=== PATIENT | female | born 1955 | race Caucasian/White ===

== ENCOUNTER 2017-02-18 10:23 | Emergency (ER) | payer MEDICAID ==
[~2017-02-18] VITALS: Ht 154.9 cm; Wt 66.0 kg
[~2017-02-18 10:23] MED LIST: GLIP10TA3 PO; HYDR-4005 GT; HYDR-519 PO; LEVO500T2 *; LEVO500T2 PO; METF1000 PO; SITA50TA3 PO
[2017-02-18] MEDS ORDERED: LISI-604 PO (10:32)
[2017-02-18] MEDS ORDERED: AMLO10TA80 PO (10:32)
[2017-02-18] MEDS ORDERED: PIOG15TA6 PO (10:32)
[2017-02-18] MEDS ORDERED: EMPA10TA PO (10:32)
[2017-02-18] MEDS ORDERED: ATOR20TA65 PO (10:32)
[2017-02-18] MEDS ORDERED: valsartan PO (10:32)
[2017-02-18] MEDS ORDERED: ASPI-1159 PO (10:32)
[2017-02-18] MEDS ORDERED: METOCLOPRAMIDE HCL 10MG/2ML VIAL IV ONE (11:30)
[2017-02-18] MEDS ORDERED: MORPHINE SULFATE 2 MG/ML CPJ (NOT FOR IM USE) IV ONE (11:30)
[2017-02-18] MEDS ORDERED: DIPHENHYDRAMINE 50MG/ML VIAL IV ONE (11:30)
[2017-02-18 11:35] LABS: BASOPHILS % 0.5 % (0.0-2.0); EOSINOPHILS % 1.7 % (0.0-5.0); HEMATOCRIT. 41.4 % (36.0-48.0); HEMOGLOBIN. 13.5 g/dL (12.0-16.0); MEAN CORPUSCULAR VOLUME 83.1 fL (81.0-99.0); MEAN PLATELET VOLUME 8.1 fl (7.4-10.4); MONOCYTES % 6.7 % (2.0-8.0); NEUTROPHILS % 72.1 % (40.0-76.0); PLATELET 195 x1000/uL (130-400); RED BLOOD CELL COUNT 4.99 mill/uL (4.2-5.4); RED CELL DISTRIBUTION WIDTH 14.2 % (11.6-14.6)
[2017-02-18 11:43] LABS: CHLORIDE 105 mEq/L (98-107)
[2017-02-18 11:51] LABS: CARBON DIOXIDE 26 mEq/L (21-32)
[2017-02-18 15:21] VITALS: BP 120/75
== END 2017-02-18 15:24 | disposition home or self-care (01) ==
LOC: ER 11:00
DX: G43.809 Other migraine, not intractable, without status migrainosus (principal); M54.2 Cervicalgia; R42 Dizziness and giddiness; H53.149 Visual discomfort, unspecified; I10 Essential (primary) hypertension; E11.65 Type 2 diabetes mellitus with hyperglycemia; Z79.82 Long term (current) use of aspirin; Z90.49 Acquired absence of other specified parts of digestive tract
CPT/HCPCS: 36415; 70450; 80053; 85025; 96374; 96375; 99285; J1200; J2270; J2765

== ENCOUNTER 2017-02-19 14:35 | Emergency (ER) | payer MEDICAID ==
[~2017-02-19] VITALS: Ht 154.9 cm; Wt 66.0 kg
[~2017-02-19 14:35] MED LIST changes: +AMLO10TA80 PO; +ASPI-1159 PO; +ATOR20TA65 PO; +EMPA10TA PO; +LISI-604 PO; +PIOG15TA6 PO; +valsartan PO
[2017-02-19] MEDS ORDERED: DIPHENHYDRAMINE 50MG/ML VIAL IV ONE (15:15)
[2017-02-19] MEDS ORDERED: MORPHINE SULFATE 2 MG/ML CPJ (NOT FOR IM USE) IV ONE (15:15)
[2017-02-19] MEDS ORDERED: METOCLOPRAMIDE HCL 10MG/2ML VIAL IV ONE (15:15)
[2017-02-19 15:43] LABS: BASOPHILS % 1.1 % (0.0-2.0); EOSINOPHILS % 2.5 % (0.0-5.0); HEMOGLOBIN. 14.5 g/dL (12.0-16.0); LYMPHOCYTES % 40.7 % (20.0-50.0); MEAN CORPUSCULAR HEMOGLOBIN 27.5 pg (28.0-32.0); MEAN CORPUSCULAR VOLUME 81.7 fL (81.0-99.0); MEAN PLATELET VOLUME 8.7 fl (7.4-10.4); NEUTROPHILS % 48.7 % (40.0-76.0); PLATELET 210 x1000/uL (130-400); RED BLOOD CELL COUNT 5.26 mill/uL (4.2-5.4)
[2017-02-19 15:44] LABS: CHLORIDE 103 mEq/L (98-107)
[2017-02-19 15:49] LABS: CARBON DIOXIDE 21 mEq/L (21-32)
[2017-02-19 16:39] LABS: CLARITY URINE CLEAR (CLEAR); COLOR URINE YELLOW (YELLOW); GLUCOSE URINE 3+ (NEGATIVE); KETONES URINE 1+ (NEGATIVE); LEUKOCYTE ESTERASE URINE NEGATIVE (NEGATIVE); NITRITE URINE NEGATIVE (NEGATIVE); OCCULT BLOOD URINE NEGATIVE (NEGATIVE); PH URINE 7.5 (4.5-8.0); PROTEIN URINE NEGATIVE (NEGATIVE); UROBILINOGEN URINE 0.2 E.U./dL (0.2-1.0)
[2017-02-19] MEDS ORDERED: LORAZEPAM 1MG TABLET PO ONE (20:15)
[2017-02-19] MEDS ORDERED: SUMATRIPTAN SUCCINATE 6MG/0.5ML VIAL SUBCUT ONE (20:15)
[2017-02-19] MEDS ORDERED: KETOROLAC 30MG/ML VIAL IV ONE (20:15)
[2017-02-19 22:10] VITALS: BP 139/86
== END 2017-02-19 22:21 | disposition home or self-care (01) ==
LOC: ER 16:26
DX: G43.909 Migraine, unspecified, not intractable, without status migrainosus (principal); I10 Essential (primary) hypertension; E11.9 Type 2 diabetes mellitus without complications; Z79.84 Long term (current) use of oral hypoglycemic drugs
CPT/HCPCS: 36415; 70551; 80053; 81001; 82962; 85025; 85651; 96372; 96374; 96375; 99284; J1200; J1885; J2270; J2765; J3030; Z7610

== ENCOUNTER 2017-11-18 11:46 | Emergency (ER) | payer MEDICAID ==
[~2017-11-18] VITALS: Ht 160 cm; Wt 55.0 kg
[2017-11-18 11:49] VITALS: BP 148/99
== END 2017-11-18 12:59 | disposition home or self-care (01) ==
LOC: ER 12:56
DX: S80.862A Insect bite (nonvenomous), left lower leg, initial encounter (principal); S80.861A Insect bite (nonvenomous), right lower leg, initial encounter; S40.862A Insect bite (nonvenomous) of left upper arm, initial encounter; S40.861A Insect bite (nonvenomous) of right upper arm, initial encounter; I10 Essential (primary) hypertension; E11.9 Type 2 diabetes mellitus without complications; F41.9 Anxiety disorder, unspecified; W57.XXXA Bitten or stung by nonvenomous insect and other nonvenomous arthropods, initial encounter; Y93.9 Activity, unspecified; Y92.9 Unspecified place or not applicable; Z79.82 Long term (current) use of aspirin; Z96.659 Presence of unspecified artificial knee joint
CPT/HCPCS: 99282

== ENCOUNTER 2018-03-20 13:30 | Emergency (ER) | payer MEDICAID ==
[~2018-03-20] VITALS: Ht 154.9 cm; Wt 61.0 kg
[2018-03-20 13:59] VITALS: BP 141/94
[2018-03-20] MEDS ORDERED: BACITRACIN ZINC OINT UDPKT TOP ONE ×2 (14:45→17:30)
[2018-03-20] MEDS ORDERED: LIDOCAINE HCL/PF 1% 10 MG/ML 5ML VIAL IJ ONE (14:45)
[2018-03-20] MEDS ORDERED: KETOROLAC 60MG/2ML VIAL IM ONE (15:15)
== END 2018-03-20 17:49 | disposition home or self-care (01) ==
LOC: ER 13:30
DX: L03.011 Cellulitis of right finger (principal); F41.9 Anxiety disorder, unspecified; E11.9 Type 2 diabetes mellitus without complications; I10 Essential (primary) hypertension; Z79.899 Other long term (current) drug therapy; Z79.82 Long term (current) use of aspirin; Z96.659 Presence of unspecified artificial knee joint
CPT/HCPCS: 10060; 96372; 99283; J1885; J3490

== ENCOUNTER 2019-09-29 13:32 | Inpatient (IN) | payer OTHER, MEDICAID ==
[~2019-09-29] VITALS: Ht 154.9 cm; Wt 62.8 kg
[~2019-09-29 13:32] MED LIST changes: -ASPI-1159 PO; +ASPI-1497 PO
[2019-09-29] MEDS ORDERED: SODIUM CHLORIDE 0.9% 1,000 ML IV ONE (14:15)
[2019-09-29] MEDS ORDERED: ACETAMINOPHEN 325MG TABLET PO STA (14:15)
[2019-09-29 14:52] LABS: BASOPHILS % 0.2 % (0.0-2.0); EOSINOPHILS % 0.1 % (0.0-5.0); HEMATOCRIT. 38.4 % (36.0-48.0); HEMOGLOBIN. 13.5 g/dL (12.0-16.0); LYMPHOCYTES % 9.6 % (20.0-50.0); MEAN CORPUSCULAR HEMOGLOBIN 28.5 pg (28.0-32.0); MEAN CORPUSCULAR VOLUME 81.2 fL (81.0-99.0); MEAN PLATELET VOLUME 8.8 fl (7.4-10.4); MONOCYTES % 6.9 % (2.0-8.0); NEUTROPHILS % 83.2 % (40.0-76.0); PLATELET 190 x1000/uL (130-400); RED BLOOD CELL COUNT 4.73 mill/uL (4.2-5.4); RED CELL DISTRIBUTION WIDTH 13.2 % (11.6-14.6)
[2019-09-29 14:59] LABS: CHLORIDE 100 mEq/L (98-107)
[2019-09-29] MEDS ORDERED: POTASSIUM CHLORIDE 20MEQ TABLET SR PO ONE (15:30)
[2019-09-29] MEDS ORDERED: POTASSIUM CHLORIDE INJ 40 MEQ in DEXT 5% WATER 250 ML IV ONE (15:30)
[2019-09-29 17:03] LABS: CLARITY URINE CLEAR (CLEAR); COLOR URINE YELLOW (YELLOW); KETONES URINE 3+ (NEGATIVE); LEUKOCYTE ESTERASE URINE NEGATIVE (NEGATIVE); NITRITE URINE NEGATIVE (NEGATIVE); OCCULT BLOOD URINE NEGATIVE (NEGATIVE); PROTEIN URINE NEGATIVE (NEGATIVE); SPECIFIC GRAVITY URINE 1.018 (1.005-1.030); UROBILINOGEN URINE 0.2 E.U./dL (0.2-1.0)
[2019-09-29] MEDS ORDERED: ACETAMINOPHEN 325MG TABLET PO PRN (17:15)
[2019-09-29] MEDS ORDERED: CEFTRIAXONE 1 G PREMIX 50 ML IV SCH (18:00)
[2019-09-29] MEDS: ENOXAPARIN 40MG/0.4ML SYR SUBCUT SCH (18:27)
[2019-09-29] MEDS: AZITHROMYCIN 500 MG in DEXT 5% WATER 250 ML IV SCH (23:00)
[2019-09-30] MEDS: HYDROCODONE/ACETAMINOPHEN 5/325MG TABLET PO PRN ×2 (06:37→13:55)
[2019-09-30] MEDS ORDERED: DEXTROSE 50% WATER 50ML SYRINGE IV PRN (11:30)
[2019-09-30 14:27] VITALS: BP 140/85
[2019-09-30 16:00] VITALS: BP 116/71
[2019-09-30] MEDS: PIPERACILLIN/TAZOBACTAM 3.375 G in DEXT 5% WATER 100 ML IV SCH ×2 (16:08→23:26)
[2019-09-30 16:40] LABS: HEMATOCRIT. 35.7 % (36.0-48.0); HEMOGLOBIN. 12.1 g/dL (12.0-16.0); MEAN CORPUSCULAR HEMOGLOBIN 27.8 pg (28.0-32.0); MEAN CORPUSCULAR VOLUME 82.3 fL (81.0-99.0); PLATELET 170 x1000/uL (130-400); RED BLOOD CELL COUNT 4.33 mill/uL (4.2-5.4); RED CELL DISTRIBUTION WIDTH 13.3 % (11.6-14.6)
[2019-09-30 16:46] LABS: CHLORIDE 102 mEq/L (98-107)
[2019-09-30 16:58] LABS: LDL CHOLESTEROL 47 mg/dL (5-100)
[2019-09-30 16:59] LABS: HDL CHOLESTEROL 34 mg/dL (40-59)
[2019-09-30] MEDS: ENOXAPARIN 40MG/0.4ML SYR SUBCUT SCH (17:19)
[2019-09-30 17:39] LABS: PLATELET ESTIMATE NORMAL
[2019-09-30] MEDS: BLOOD SUGAR DIAGNOSTIC STRIP TEST SCH ×2 (17:51→21:09)
[2019-09-30] MEDS: INSULIN LISPRO 100 UNITS/ML SUBCUT SCH ×2 (17:53→21:10)
[2019-09-30 20:00] VITALS: BP 133/80
[2019-09-30] MEDS: AZITHROMYCIN 500 MG in DEXT 5% WATER 250 ML IV SCH (21:08)
[2019-09-30] MEDS: ACETAMINOPHEN 325MG TABLET PO PRN (21:17)
[2019-10-01] VITALS (7 sets, daily range): BP systolic 120–169; BP diastolic 73–88
[2019-10-01] MEDS: ZOLPIDEM TARTRATE 5MG TABLET PO PRN ×2 (00:24→21:43)
[2019-10-01] MEDS: BLOOD SUGAR DIAGNOSTIC STRIP TEST SCH ×4 (06:52→21:05)
[2019-10-01] MEDS: CEFTRIAXONE 1 G PREMIX 50 ML IV SCH (08:34)
[2019-10-01] MEDS: INSULIN LISPRO 100 UNITS/ML SUBCUT SCH ×4 (08:35→21:18)
[2019-10-01] MEDS: HYDROCODONE/ACETAMINOPHEN 5/325MG TABLET PO PRN ×3 (08:45→21:43)
[2019-10-01] MEDS: ACETAMINOPHEN 325MG TABLET PO PRN (16:56)
[2019-10-01] MEDS: ENOXAPARIN 40MG/0.4ML SYR SUBCUT SCH (18:18)
[2019-10-01] MEDS: GUAIFENESIN-DM 200MG-20MG/10ML UDC PO PRN (20:43)
[2019-10-01] MEDS: INSULIN GLARGINE UD 100 UNITS/ML SYR SUBCUT SCH (21:19)
[2019-10-01] MEDS: AZITHROMYCIN 500 MG in DEXT 5% WATER 250 ML IV SCH (21:57)
[2019-10-01] MEDS: DIPHENHYDRAMINE 50MG/ML VIAL IV PRN (23:48)
[2019-10-02] VITALS: BP 167/83
[2019-10-02] MEDS: HYDROCODONE/ACETAMINOPHEN 5/325MG TABLET PO PRN ×4 (03:36→21:43)
[2019-10-02 04:00] VITALS: BP 135/84
[2019-10-02] MEDS: BLOOD SUGAR DIAGNOSTIC STRIP TEST SCH ×4 (06:45→21:00)
[2019-10-02 08:00] VITALS: BP 159/88
[2019-10-02] MEDS: INSULIN LISPRO 100 UNITS/ML SUBCUT SCH ×4 (08:36→21:00)
[2019-10-02] MEDS: CEFTRIAXONE 1 G PREMIX 50 ML IV SCH (08:36)
[2019-10-02] MEDS: GUAIFENESIN-DM 200MG-20MG/10ML UDC PO PRN (08:40)
[2019-10-02] MEDS: INSULIN GLARGINE UD 100 UNITS/ML SYR SUBCUT SCH ×2 (10:07→22:11)
[2019-10-02 12:00] VITALS: BP 146/87
[2019-10-02 16:00] VITALS: BP 154/91
[2019-10-02] MEDS: ENOXAPARIN 40MG/0.4ML SYR SUBCUT SCH (18:09)
[2019-10-02 20:00] VITALS: BP 161/98
[2019-10-02 20:27] LABS: EOSINOPHILS % 4.2 % (0.0-5.0); HEMATOCRIT. 33.2 % (36.0-48.0); HEMOGLOBIN. 11.3 g/dL (12.0-16.0); LYMPHOCYTES % 36.8 % (20.0-50.0); MEAN CORPUSCULAR HEMOGLOBIN 27.6 pg (28.0-32.0); MEAN CORPUSCULAR VOLUME 81.3 fL (81.0-99.0); MEAN PLATELET VOLUME 8.4 fl (7.4-10.4); MONOCYTES % 13.4 % (2.0-8.0); NEUTROPHILS % 44.6 % (40.0-76.0); PLATELET 179 x1000/uL (130-400); RED BLOOD CELL COUNT 4.09 mill/uL (4.2-5.4); RED CELL DISTRIBUTION WIDTH 13.3 % (11.6-14.6)
[2019-10-02 20:31] LABS: CHLORIDE 102 mEq/L (98-107)
[2019-10-02] MEDS: AZITHROMYCIN 500 MG in DEXT 5% WATER 250 ML IV SCH (21:50)
[2019-10-02] MEDS: CLONIDINE 0.1MG TABLET PO PRN (21:51)
[2019-10-03] VITALS: BP 132/75
[2019-10-03] MEDS: ACETAMINOPHEN 325MG TABLET PO PRN ×2 (00:49→13:34)
[2019-10-03] MEDS: GUAIFENESIN-DM 200MG-20MG/10ML UDC PO PRN (00:56)
[2019-10-03 04:00] VITALS: BP 154/97
[2019-10-03] MEDS: BLOOD SUGAR DIAGNOSTIC STRIP TEST SCH ×4 (07:40→20:44)
[2019-10-03 08:00] VITALS: BP 159/96
[2019-10-03] MEDS: INSULIN LISPRO 100 UNITS/ML SUBCUT SCH ×4 (08:50→21:00)
[2019-10-03] MEDS: CEFTRIAXONE 1 G PREMIX 50 ML IV SCH (10:01)
[2019-10-03] MEDS: HYDROCODONE/ACETAMINOPHEN 5/325MG TABLET PO PRN ×3 (10:01→21:10)
[2019-10-03] MEDS: INSULIN GLARGINE UD 100 UNITS/ML SYR SUBCUT SCH ×2 (10:03→21:10)
[2019-10-03 12:00] VITALS: BP 145/84
[2019-10-03 16:00] VITALS: BP 143/76
[2019-10-03] MEDS: ENOXAPARIN 40MG/0.4ML SYR SUBCUT SCH (18:12)
[2019-10-03] MEDS: AZITHROMYCIN 500 MG in DEXT 5% WATER 250 ML IV SCH (19:54)
[2019-10-03 20:00] VITALS: BP 146/81
[2019-10-03] MEDS: ZOLPIDEM TARTRATE 5MG TABLET PO PRN (21:11)
[2019-10-04 00:05] VITALS: BP 136/86
[2019-10-04 04:00] VITALS: BP 148/87
[2019-10-04] MEDS: HYDROCODONE/ACETAMINOPHEN 5/325MG TABLET PO PRN ×3 (05:51→20:21)
[2019-10-04] MEDS: BLOOD SUGAR DIAGNOSTIC STRIP TEST SCH ×4 (06:04→21:02)
[2019-10-04] MEDS: INSULIN LISPRO 100 UNITS/ML SUBCUT SCH ×4 (07:43→21:10)
[2019-10-04 08:00] VITALS: BP 157/96
[2019-10-04] MEDS: CEFTRIAXONE 1 G PREMIX 50 ML IV SCH (09:27)
[2019-10-04] MEDS: ACETAMINOPHEN 325MG TABLET PO PRN (11:05)
[2019-10-04] MEDS: INSULIN GLARGINE UD 100 UNITS/ML SYR SUBCUT SCH ×2 (11:06→21:11)
[2019-10-04 12:00] VITALS: BP 127/86
[2019-10-04 16:00] VITALS: BP 124/75
[2019-10-04] MEDS: ENOXAPARIN 40MG/0.4ML SYR SUBCUT SCH (17:10)
[2019-10-04 20:00] VITALS: BP 148/82
[2019-10-04] MEDS: AZITHROMYCIN 500 MG in DEXT 5% WATER 250 ML IV SCH (20:20)
[2019-10-04] MEDS: ZOLPIDEM TARTRATE 5MG TABLET PO PRN (22:10)
[2019-10-05] VITALS: BP 139/70
[2019-10-05 04:00] VITALS: BP 146/93
[2019-10-05 07:44] LABS: BASOPHILS % 0.8 % (0.0-2.0); EOSINOPHILS % 0.4 % (0.0-5.0); HEMATOCRIT. 35.7 % (36.0-48.0); HEMOGLOBIN. 12.1 g/dL (12.0-16.0); LYMPHOCYTES % 29.7 % (20.0-50.0); MEAN CORPUSCULAR HEMOGLOBIN 27.4 pg (28.0-32.0); MEAN CORPUSCULAR VOLUME 80.7 fL (81.0-99.0); MEAN PLATELET VOLUME 8.3 fl (7.4-10.4); MONOCYTES % 11.1 % (2.0-8.0); PLATELET 177 x1000/uL (130-400); RED BLOOD CELL COUNT 4.43 mill/uL (4.2-5.4); RED CELL DISTRIBUTION WIDTH 13.4 % (11.6-14.6)
[2019-10-05 07:56] LABS: CHLORIDE 104 mEq/L (98-107)
[2019-10-05 08:00] VITALS: BP 140/78
[2019-10-05] MEDS: BLOOD SUGAR DIAGNOSTIC STRIP TEST SCH ×4 (08:04→21:00)
[2019-10-05] MEDS: CEFTRIAXONE 1 G PREMIX 50 ML IV SCH (08:20)
[2019-10-05] MEDS: INSULIN LISPRO 100 UNITS/ML SUBCUT SCH ×4 (08:21→22:23)
[2019-10-05] MEDS: HYDROCODONE/ACETAMINOPHEN 5/325MG TABLET PO PRN (09:23)
[2019-10-05] MEDS: INSULIN GLARGINE UD 100 UNITS/ML SYR SUBCUT SCH ×2 (09:56→22:24)
[2019-10-05 12:00] VITALS: BP 159/96
[2019-10-05] MEDS ORDERED: POTASSIUM CHLORIDE 20MEQ TABLET SR PO NR (13:00)
[2019-10-05 16:00] VITALS: BP 162/99
[2019-10-05] MEDS: ENOXAPARIN 40MG/0.4ML SYR SUBCUT SCH (17:56)
[2019-10-05] MEDS: ZOLPIDEM TARTRATE 5MG TABLET PO PRN (22:05)
[2019-10-05 23:56] VITALS: BP 139/75
[2019-10-06] MEDS: HYDROCODONE/ACETAMINOPHEN 5/325MG TABLET PO PRN ×4 (03:21→22:20)
[2019-10-06 04:00] VITALS: BP 162/95
[2019-10-06] MEDS: BLOOD SUGAR DIAGNOSTIC STRIP TEST SCH ×4 (06:57→20:34)
[2019-10-06] MEDS: INSULIN LISPRO 100 UNITS/ML SUBCUT SCH ×4 (07:55→21:10)
[2019-10-06 08:00] VITALS: BP 157/88
[2019-10-06] MEDS: GUAIFENESIN-DM 200MG-20MG/10ML UDC PO PRN ×2 (09:40→20:38)
[2019-10-06] MEDS: INSULIN GLARGINE UD 100 UNITS/ML SYR SUBCUT SCH ×2 (09:41→21:11)
[2019-10-06 12:00] VITALS: BP 142/68
[2019-10-06] MEDS ORDERED: INSULIN GLARGINE UD 100 UNITS/ML SYR SUBCUT SCH (14:30)
[2019-10-06 16:00] VITALS: BP 159/80
[2019-10-06] MEDS: ENOXAPARIN 40MG/0.4ML SYR SUBCUT SCH (17:55)
[2019-10-06] MEDS: ACETAMINOPHEN 325MG TABLET PO PRN (18:18)
[2019-10-06 20:00] VITALS: BP 159/87
[2019-10-06] MEDS ORDERED: ZOLPIDEM TARTRATE 5MG TABLET PO PRN (22:15)
[2019-10-06] MEDS: DIPHENHYDRAMINE 50MG/ML VIAL IV PRN (23:13)
[2019-10-07] VITALS: BP 162/92
[2019-10-07 04:00] VITALS: BP 168/96
[2019-10-07] MEDS: BLOOD SUGAR DIAGNOSTIC STRIP TEST SCH ×3 (06:41→16:58)
[2019-10-07 08:00] VITALS: BP 168/92
[2019-10-07] MEDS: INSULIN LISPRO 100 UNITS/ML SUBCUT SCH ×3 (08:30→17:07)
[2019-10-07] MEDS: HYDROCODONE/ACETAMINOPHEN 5/325MG TABLET PO PRN (08:49)
[2019-10-07] MEDS: CLONIDINE 0.1MG TABLET PO PRN (10:06)
[2019-10-07 12:00] VITALS: BP 123/72
[2019-10-07 12:17] LABS: CHLORIDE 102 mEq/L (98-107)
[2019-10-07] MEDS: INSULIN GLARGINE UD 100 UNITS/ML SYR SUBCUT SCH (13:48)
[2019-10-07] MEDS ORDERED: IOHEXOL-350 100 ML BOTTLE ONE (14:35)
[2019-10-07 16:00] VITALS: BP 119/71
[2019-10-07] MEDS: ACETAMINOPHEN 325MG TABLET PO PRN (17:05)
[2019-10-07] MEDS: ENOXAPARIN 40MG/0.4ML SYR SUBCUT SCH (18:00)
[2019-10-07 18:18] VITALS: BP 119/71
== END 2019-10-07 19:00 | disposition home or self-care (01) | DRG 871 ==
LOC: ER 13:45 → 7WST 16:45 → EDBEDREQ 16:59 → EDBEDREQTM 16:59 → ENRESERV 09-30 11:42 → ER 09-30 12:52 → 7WST 09-30 20:45
PROVIDERS: ADMIT Internal Medicine; ATTEND Internal Medicine
DX: A41.89 Other specified sepsis (principal); U07.1 COVID-19; E87.6 Hypokalemia; L03.011 Cellulitis of right finger; E11.9 Type 2 diabetes mellitus without complications; F41.9 Anxiety disorder, unspecified; Z96.659 Presence of unspecified artificial knee joint; D72.810 Lymphocytopenia; I10 Essential (primary) hypertension; Z85.3 Personal history of malignant neoplasm of breast; Z93.3 Colostomy status; Z90.49 Acquired absence of other specified parts of digestive tract; Z90.11 Acquired absence of right breast and nipple; Z79.82 Long term (current) use of aspirin; Z79.84 Long term (current) use of oral hypoglycemic drugs; Z79.2 Long term (current) use of antibiotics; Z79.899 Other long term (current) drug therapy
CPT/HCPCS: 36415; 71045; 80048; 80053; 80061; 81003; 82728; 82962; 83036; 83605; 83615; 83880; 84145; 84443; 84484; 85025; 85379; 86141; 87635; 87804; 93005; 99285; J0456; J0696; J1200; J1650; J1815; J2543; J3480; J7030; J7060; Q9967; C9803-CS

== ENCOUNTER 2020-07-12 13:35 | Inpatient (IN) | payer OTHER, MEDICAID ==
[~2020-07-12] VITALS: Ht 154.9 cm; Wt 60.8 kg
[~2020-07-12 13:35] MED LIST changes: -HYDR-519 PO; -LEVO500T2 *; -LEVO500T2 PO; -LISI-604 PO; +LISI20TA31 PO; -valsartan PO
[2020-07-12] MEDS ORDERED: SODIUM CHLORIDE 0.9% 1,000 ML IV ONE ×2 (15:00→16:15)
[2020-07-12] MEDS ORDERED: KETOROLAC 30MG/ML VIAL IV STA (15:12)
[2020-07-12 15:21] LABS: BASOPHILS % 0.4 % (0.0-2.0); EOSINOPHILS % 1.3 % (0.0-5.0); HEMATOCRIT. 40.7 % (36.0-48.0); HEMOGLOBIN. 13.1 g/dL (12.0-16.0); LYMPHOCYTES % 13.2 % (20.0-50.0); MEAN CORPUSCULAR HEMOGLOBIN 26.3 pg (28.0-32.0); MEAN CORPUSCULAR VOLUME 81.5 fL (81.0-99.0); MEAN PLATELET VOLUME 8.4 fl (7.4-10.4); MONOCYTES % 8.9 % (2.0-8.0); NEUTROPHILS % 76.2 % (40.0-76.0); PLATELET 178 x1000/uL (130-400)
[2020-07-12 15:31] LABS: CHLORIDE 99 mEq/L (98-107)
[2020-07-12 15:40] LABS: BETA HYDROXYBUTYRATE 0.2 mMol/L (0.0-0.3)
[2020-07-12 15:43] LABS: CLARITY URINE CLEAR (CLEAR); COLOR URINE YELLOW (YELLOW); KETONES URINE TRACE (NEGATIVE); LEUKOCYTE ESTERASE URINE TRACE (NEGATIVE); NITRITE URINE NEGATIVE (NEGATIVE); OCCULT BLOOD URINE 1+ (NEGATIVE); PROTEIN URINE NEGATIVE (NEGATIVE); UROBILINOGEN URINE 0.2 E.U./dL (0.2-1.0)
[2020-07-12] MEDS ORDERED: INSULIN REGULAR (HUMULIN R) 300UNITS/3ML VIAL SUBCUT ONE (16:15)
[2020-07-12] MEDS ORDERED: HYDROCODONE/ACETAMINOPHEN 5/325MG TABLET PO ONE (17:00)
[2020-07-12] MEDS ORDERED: CLONIDINE 0.1MG TABLET PO PRN (23:45)
[2020-07-12] MEDS ORDERED: DEXTROSE 50% WATER 50ML SYRINGE IV PRN (23:45)
[2020-07-13] MEDS: INSULIN LISPRO (HIGH DOSE) 100 UNITS/ML SUBCUT SCH ×5 (00:13→20:14)
[2020-07-13] MEDS: HYDROCODONE/ACETAMINOPHEN 5/325MG TABLET PO PRN ×2 (02:12→12:47)
[2020-07-13] MEDS: ACETAMINOPHEN 325MG TABLET PO PRN ×2 (05:07→16:06)
[2020-07-13] MEDS: ZOLPIDEM TARTRATE 5MG TABLET PO PRN ×2 (05:07→20:11)
[2020-07-13] MEDS: BLOOD SUGAR DIAGNOSTIC STRIP TEST SCH ×5 (07:16→20:11)
[2020-07-13 09:49] VITALS: BP 124/88
[2020-07-13 12:00] VITALS: BP 141/78
[2020-07-13] MEDS ORDERED: INFLUENZA VACCINE 05/PF 0.5 ML VIAL IM ONE (13:00)
[2020-07-13] MEDS: ASPIRIN 81MG EC TABLET PO SCH (13:09)
[2020-07-13] MEDS: DOCUSATE SODIUM 100MG CAPSULE PO SCH ×2 (14:36→17:40)
[2020-07-13] MEDS: PIOGLITAZONE 15MG TABLET PO SCH (14:36)
[2020-07-13] MEDS: CEFTRIAXONE 1,000 MG in DEXTROSE 5% WATER 50 ML IV SCH (15:10)
[2020-07-13 16:00] VITALS: BP 131/91
[2020-07-13] MEDS: METFORMIN HCL 500MG TABLET PO SCH (17:40)
[2020-07-13 20:00] VITALS: BP 151/90
[2020-07-13] MEDS: ATORVASTATIN CALCIUM 20MG TABLET PO SCH (20:11)
[2020-07-14] VITALS: BP 140/74
[2020-07-14 04:00] VITALS: BP 145/85
[2020-07-14] MEDS: INSULIN LISPRO (HIGH DOSE) 100 UNITS/ML SUBCUT SCH ×4 (06:44→20:40)
[2020-07-14] MEDS: BLOOD SUGAR DIAGNOSTIC STRIP TEST SCH ×4 (06:45→20:30)
[2020-07-14 08:00] VITALS: BP 162/92
[2020-07-14] MEDS: DOCUSATE SODIUM 100MG CAPSULE PO SCH ×2 (09:07→16:49)
[2020-07-14] MEDS: AMLODIPINE 10MG TABLET PO SCH (09:07)
[2020-07-14] MEDS: LISINOPRIL 20MG TABLET PO SCH (09:07)
[2020-07-14] MEDS: PIOGLITAZONE 15MG TABLET PO SCH (09:07)
[2020-07-14] MEDS: ASPIRIN 81MG EC TABLET PO SCH (09:07)
[2020-07-14] MEDS: METFORMIN HCL 500MG TABLET PO SCH ×2 (09:07→16:49)
[2020-07-14] MEDS: IBUPROFEN 600MG TABLET PO PRN (09:25)
[2020-07-14] MEDS: MORPHINE SULFATE 2 MG/ML CPJ (NOT FOR IM USE) IV PRN ×3 (10:42→22:54)
[2020-07-14 12:00] VITALS: BP 146/95
[2020-07-14] MEDS ORDERED: CYCLOBENZAPRINE 10MG TABLET PO PRN (13:00)
[2020-07-14] MEDS: CEFTRIAXONE 1,000 MG in DEXTROSE 5% WATER 50 ML IV SCH (13:31)
[2020-07-14] MEDS ORDERED: LACTULOSE 20G/30ML UDC PO NR (13:45)
[2020-07-14 16:00] VITALS: BP 155/72
[2020-07-14] MEDS: ACETAMINOPHEN 325MG TABLET PO PRN (16:49)
[2020-07-14 20:00] VITALS: BP 124/82
[2020-07-14] MEDS: ZOLPIDEM TARTRATE 5MG TABLET PO PRN (20:30)
[2020-07-14] MEDS: ATORVASTATIN CALCIUM 20MG TABLET PO SCH (20:30)
[2020-07-15] VITALS: BP 117/75
[2020-07-15 04:00] VITALS: BP 126/66
[2020-07-15] MEDS: MORPHINE SULFATE 2 MG/ML CPJ (NOT FOR IM USE) IV PRN ×3 (05:31→17:57)
[2020-07-15 07:01] LABS: HEMOGLOBIN. 12.1 g/dL (12.0-16.0); MEAN CORPUSCULAR HEMOGLOBIN 26.3 pg (28.0-32.0); MEAN CORPUSCULAR VOLUME 80.7 fL (81.0-99.0); MEAN PLATELET VOLUME 8.6 fl (7.4-10.4); PLATELET 134 x1000/uL (130-400); RED BLOOD CELL COUNT 4.59 mill/uL (4.2-5.4); RED CELL DISTRIBUTION WIDTH 15.2 % (11.6-14.6)
[2020-07-15 07:08] LABS: CHLORIDE 106 mEq/L (98-107)
[2020-07-15] MEDS: BLOOD SUGAR DIAGNOSTIC STRIP TEST SCH ×4 (07:13→21:00)
[2020-07-15] MEDS: INSULIN LISPRO (HIGH DOSE) 100 UNITS/ML SUBCUT SCH ×4 (07:18→22:47)
[2020-07-15 08:00] VITALS: BP 124/84
[2020-07-15] MEDS: AMLODIPINE 10MG TABLET PO SCH (09:25)
[2020-07-15] MEDS: METFORMIN HCL 500MG TABLET PO SCH ×2 (09:25→17:08)
[2020-07-15] MEDS: LISINOPRIL 20MG TABLET PO SCH (09:25)
[2020-07-15] MEDS: DOCUSATE SODIUM 100MG CAPSULE PO SCH ×2 (09:25→17:08)
[2020-07-15] MEDS: PIOGLITAZONE 15MG TABLET PO SCH (09:25)
[2020-07-15] MEDS: ASPIRIN 81MG EC TABLET PO SCH (09:25)
[2020-07-15] MEDS: IBUPROFEN 600MG TABLET PO PRN ×2 (09:28→22:48)
[2020-07-15 12:00] VITALS: BP 138/84
[2020-07-15] MEDS: CEFTRIAXONE 1,000 MG in DEXTROSE 5% WATER 50 ML IV SCH (15:38)
[2020-07-15 16:00] VITALS: BP 110/70
[2020-07-15 17:17] LABS: PLATELET ESTIMATE NORMAL
[2020-07-15 20:00] VITALS: BP 141/77
[2020-07-15] MEDS: ATORVASTATIN CALCIUM 20MG TABLET PO SCH (22:48)
[2020-07-16] VITALS: BP 131/79
[2020-07-16] MEDS: MORPHINE SULFATE 2 MG/ML CPJ (NOT FOR IM USE) IV PRN ×4 (00:02→21:18)
[2020-07-16] MEDS: ZOLPIDEM TARTRATE 5MG TABLET PO PRN ×2 (03:56→21:17)
[2020-07-16 04:00] VITALS: BP 124/74
[2020-07-16] MEDS: BLOOD SUGAR DIAGNOSTIC STRIP TEST SCH ×4 (06:58→21:23)
[2020-07-16] MEDS: INSULIN LISPRO (HIGH DOSE) 100 UNITS/ML SUBCUT SCH ×4 (06:58→21:18)
[2020-07-16 08:00] VITALS: BP 166/96
[2020-07-16] MEDS: LISINOPRIL 20MG TABLET PO SCH (09:22)
[2020-07-16] MEDS: METFORMIN HCL 500MG TABLET PO SCH ×2 (09:22→17:07)
[2020-07-16] MEDS: AMLODIPINE 10MG TABLET PO SCH (09:22)
[2020-07-16] MEDS: PIOGLITAZONE 15MG TABLET PO SCH (09:22)
[2020-07-16] MEDS: DOCUSATE SODIUM 100MG CAPSULE PO SCH ×2 (09:22→17:07)
[2020-07-16 11:30] VITALS: BP 174/100
[2020-07-16] MEDS: DEXAMETHASONE 4MG/ML 1ML VIAL IV SCH ×2 (11:45→17:07)
[2020-07-16] MEDS: ONDANSETRON HCL 4MG/2ML INJ IV PRN ×2 (11:45→22:44)
[2020-07-16] MEDS: CLONIDINE 0.1MG TABLET PO PRN (11:48)
[2020-07-16] MEDS: CEFTRIAXONE 1,000 MG in DEXTROSE 5% WATER 50 ML IV SCH (13:47)
[2020-07-16] MEDS: ACETAMINOPHEN 325MG TABLET PO PRN (14:26)
[2020-07-16] MEDS: POLYETHYLENE GLYCOL 3350 (17GM) 1 DOSE PACK PO PRN (14:26)
[2020-07-16 15:57] VITALS: BP 115/72
[2020-07-16 20:00] VITALS: BP 134/80
[2020-07-16] MEDS: ATORVASTATIN CALCIUM 20MG TABLET PO SCH (21:22)
[2020-07-17] VITALS (39 sets, daily range): BP systolic 80–175; BP diastolic 52–144
[2020-07-17] MEDS: DEXAMETHASONE 4MG/ML 1ML VIAL IV SCH ×5 (00:32→23:47)
[2020-07-17] MEDS: MORPHINE SULFATE 2 MG/ML CPJ (NOT FOR IM USE) IV PRN ×2 (01:51→06:05)
[2020-07-17] MEDS ORDERED: ACETAMINOPHEN 500MG TABLET ONE (05:28)
[2020-07-17] MEDS ORDERED: SKIN ADHESIVE 0.7 GM EA TOP ONE (05:29)
[2020-07-17] MEDS ORDERED: THROMBIN (BOVINE) 5000 UNITS/VIAL TOP ONE ×2 (05:29→10:47)
[2020-07-17] MEDS ORDERED: POLYMYXIN B SULFATE 500000 UNITS/VIAL ONE ×2 (05:29→10:48)
[2020-07-17] MEDS ORDERED: HEPARIN 1000 UNITS/ML 10ML ONE (05:35)
[2020-07-17] MEDS: BLOOD SUGAR DIAGNOSTIC STRIP TEST SCH ×4 (06:05→20:52)
[2020-07-17] MEDS: CLONIDINE 0.1MG TABLET PO PRN (06:08)
[2020-07-17] MEDS: INSULIN LISPRO (HIGH DOSE) 100 UNITS/ML SUBCUT SCH ×4 (06:09→21:11)
[2020-07-17 06:59] LABS: BASOPHILS % 0.1 % (0.0-2.0); HEMATOCRIT. 36.6 % (36.0-48.0); HEMOGLOBIN. 12.2 g/dL (12.0-16.0); LYMPHOCYTES % 10.2 % (20.0-50.0); MEAN CORPUSCULAR HEMOGLOBIN 26.5 pg (28.0-32.0); MEAN CORPUSCULAR VOLUME 79.3 fL (81.0-99.0); MEAN PLATELET VOLUME 8.8 fl (7.4-10.4); MONOCYTES % 2.5 % (2.0-8.0); NEUTROPHILS % 87.2 % (40.0-76.0); PLATELET 146 x1000/uL (130-400); RED BLOOD CELL COUNT 4.61 mill/uL (4.2-5.4); RED CELL DISTRIBUTION WIDTH 14.6 % (11.6-14.6)
[2020-07-17] MEDS: METFORMIN HCL 500MG TABLET PO SCH ×3 (07:15→17:00)
[2020-07-17 07:34] LABS: CHLORIDE 103 mEq/L (98-107)
[2020-07-17] MEDS ORDERED: CALCIUM CARBONATE 500MG TABLET CHEW PO SCH (07:45)
[2020-07-17] MEDS ORDERED: TRAMADOL 50MG TABLET PO PRN (07:45)
[2020-07-17] MEDS: PIOGLITAZONE 15MG TABLET PO SCH (08:11)
[2020-07-17] MEDS: DOCUSATE SODIUM 100MG CAPSULE PO SCH ×2 (08:12→17:00)
[2020-07-17] MEDS: PANTOPRAZOLE 40MG DR TABLET PO SCH (08:33)
[2020-07-17] MEDS: LISINOPRIL 20MG TABLET PO SCH (08:33)
[2020-07-17] MEDS: AMLODIPINE 10MG TABLET PO SCH (08:33)
[2020-07-17 10:18] LABS: PROTHROMBIN TIME 11.1 sec (9.6-11.0)
[2020-07-17] MEDS ORDERED: BACITRACIN 15GM TUBE TOP ONE (10:47)
[2020-07-17] MEDS ORDERED: LIDOCAINE HCL 1% 20ML VIAL (Pyxis) INJ ONE (10:47)
[2020-07-17] MEDS ORDERED: BUPIVACAINE HCL 0.5% (5MG/ML) 50ML ONE (10:48)
[2020-07-17] MEDS ORDERED: MORPHINE SULFATE 2 MG/ML CPJ (NOT FOR IM USE) IV PRN (11:00)
[2020-07-17] MEDS ORDERED: LIDOCAINE 1%/EPI 1:200,000 10 ML VIAL IJ ONE (11:09)
[2020-07-17] MEDS ORDERED: GENTAMICIN SULF 40MG/ML 2ML VIAL ONE (12:17)
[2020-07-17] MEDS ORDERED: FENTANYL CITRATE/PF 50MCG/ML 2ML VIAL ONE ×3 (12:52→14:00)
[2020-07-17] MEDS ORDERED: GLYCOPYRROLATE 0.2 MG/ML 2ML VIAL ONE (12:53)
[2020-07-17] MEDS ORDERED: SODIUM CHLORIDE 0.9% 10ML VIAL ONE (12:53)
[2020-07-17] MEDS ORDERED: PROPOFOL 200MG/20ML VIAL IV ONE (12:53)
[2020-07-17] MEDS ORDERED: METOCLOPRAMIDE HCL 10MG/2ML VIAL ONE (12:53)
[2020-07-17] MEDS ORDERED: CEFAZOLIN SODIUM 1000MG/VIAL ONE (12:53)
[2020-07-17] MEDS ORDERED: ROCURONIUM BROMIDE 10MG/ML VIAL 5ML IV ONE ×2 (12:53→13:24)
[2020-07-17] MEDS ORDERED: NEOSTIGMINE METHYLSULFATE 1MG/ML 10 ML VIAL ONE (12:53)
[2020-07-17] MEDS ORDERED: ONDANSETRON HCL 4MG/2ML INJ ONE (12:53)
[2020-07-17] MEDS ORDERED: MIDAZOLAM HCL 2 MG/2 ML VIAL ONE (12:53)
[2020-07-17] MEDS ORDERED: SUCCINYLCHOLINE CHLORIDE 200MG/10ML IV ONE (12:53)
[2020-07-17] MEDS ORDERED: DEXAMETHASONE 4MG/ML 1ML VIAL ONE (12:53)
[2020-07-17] MEDS: CEFTRIAXONE 1,000 MG in DEXTROSE 5% WATER 50 ML IV SCH (14:00)
[2020-07-17] MEDS ORDERED: MORPHINE SULFATE 4 MG/ML CPJ (NOT FOR IM USE) IV PRN (15:15)
[2020-07-17] MEDS ORDERED: LABETALOL HCL 5MG/ML VIAL 20ML IV ONE (15:20)
[2020-07-17] MEDS ORDERED: DIPHENHYDRAMINE INJ IV PRN (15:45)
[2020-07-17] MEDS ORDERED: NALOXONE HCL 0.4 MG/ML 1ML VIAL IV PRN (15:45)
[2020-07-17] MEDS ORDERED: HYDROMORPHONE PCA 10MG/50ML IV PRN (15:45)
[2020-07-17] MEDS ORDERED: NALOXONE INJ IV PRN (15:45)
[2020-07-17] MEDS ORDERED: ONDANSETRON INJ IV PRN (16:00)
[2020-07-17] MEDS: NICARDIPINE 100 MG in SODIUM CHLORIDE 0.9% 60 ML IV PRN (16:09)
[2020-07-17] MEDS: SODIUM CHLORIDE 0.9% 1,000 ML IV SCH (16:43)
[2020-07-17] MEDS ORDERED: HYDROCODONE/ACETAMINOPHEN 5/325MG TABLET PO PRN (19:45)
[2020-07-17] MEDS: ATORVASTATIN CALCIUM 20MG TABLET PO SCH (21:09)
[2020-07-17] MEDS: CEFAZOLIN 1000MG PREMIX 50 ML IV SCH (21:09)
[2020-07-17] MEDS: ACETAMINOPHEN WITH CODEINE 300/30MG TABLET PO PRN (21:10)
[2020-07-17] MEDS: ZOLPIDEM TARTRATE 5MG TABLET PO PRN (21:31)
[2020-07-17] MEDS ORDERED: CEFAZOLIN SODIUM 1000MG/VIAL IV SCH (22:00)
[2020-07-17] MEDS: POLYETHYLENE GLYCOL 3350 (17GM) 1 DOSE PACK PO PRN (23:10)
[2020-07-18] VITALS (71 sets, daily range): BP systolic 103–163; BP diastolic 51–107
[2020-07-18] MEDS: SODIUM CHLORIDE 0.9% 1,000 ML IV SCH ×3 (01:34→22:05)
[2020-07-18] MEDS: ACETAMINOPHEN WITH CODEINE 300/30MG TABLET PO PRN (03:13)
[2020-07-18 05:02] LABS: HEMOGLOBIN. 11.5 g/dL (12.0-16.0); MEAN CORPUSCULAR HEMOGLOBIN 25.8 pg (28.0-32.0); MEAN CORPUSCULAR VOLUME 80.8 fL (81.0-99.0); MEAN PLATELET VOLUME 8.9 fl (7.4-10.4); PLATELET 156 x1000/uL (130-400); RED BLOOD CELL COUNT 4.46 mill/uL (4.2-5.4); RED CELL DISTRIBUTION WIDTH 14.8 % (11.6-14.6)
[2020-07-18 05:03] LABS: CHLORIDE 102 mEq/L (98-107)
[2020-07-18 05:10] LABS: LDL CHOLESTEROL 113 mg/dL (5-100)
[2020-07-18 05:11] LABS: HDL CHOLESTEROL 60 mg/dL (40-59)
[2020-07-18] MEDS: BLOOD SUGAR DIAGNOSTIC STRIP TEST SCH ×4 (06:29→21:56)
[2020-07-18] MEDS: CEFAZOLIN 1000MG PREMIX 50 ML IV SCH ×2 (06:37→15:08)
[2020-07-18] MEDS: METFORMIN HCL 500MG TABLET PO SCH ×2 (06:37→17:33)
[2020-07-18] MEDS: DEXAMETHASONE 4MG/ML 1ML VIAL IV SCH ×3 (06:37→18:48)
[2020-07-18] MEDS: PANTOPRAZOLE 40MG DR TABLET PO SCH (06:37)
[2020-07-18] MEDS: INSULIN LISPRO (HIGH DOSE) 100 UNITS/ML SUBCUT SCH ×4 (06:38→22:04)
[2020-07-18] MEDS ORDERED: DIAZEPAM 2 MG TABLET PO NR (08:30)
[2020-07-18] MEDS: NICARDIPINE 100 MG in SODIUM CHLORIDE 0.9% 60 ML IV PRN (09:04)
[2020-07-18] MEDS: LISINOPRIL 20MG TABLET PO SCH (09:05)
[2020-07-18] MEDS: POLYETHYLENE GLYCOL 3350 (17GM) 1 DOSE PACK PO SCH (09:05)
[2020-07-18] MEDS: DOCUSATE SODIUM 100MG CAPSULE PO SCH ×2 (09:05→17:30)
[2020-07-18] MEDS: PIOGLITAZONE 15MG TABLET PO SCH (09:05)
[2020-07-18] MEDS: AMLODIPINE 10MG TABLET PO SCH (09:05)
[2020-07-18] MEDS: MORPHINE SULFATE 4 MG/ML CPJ (NOT FOR IM USE) IV PRN ×5 (09:06→21:40)
[2020-07-18] MEDS ORDERED: INSULIN GLARGINE UD 100 UNITS/ML SYR SUBCUT NR (13:00)
[2020-07-18] MEDS: ATORVASTATIN CALCIUM 20MG TABLET PO SCH (21:38)
[2020-07-18 22:56] LABS: PLATELET ESTIMATE NORMAL
[2020-07-19 00:05] VITALS: BP 118/71
[2020-07-19] MEDS ORDERED: ZOLPIDEM TARTRATE 5MG TABLET PO PRN (00:15)
[2020-07-19] MEDS: CEFAZOLIN 1000MG PREMIX 50 ML IV SCH (00:32)
[2020-07-19 04:00] VITALS: BP 134/76
[2020-07-19 07:02] LABS: BASOPHILS % 0.1 % (0.0-2.0); HEMATOCRIT. 36.1 % (36.0-48.0); HEMOGLOBIN. 11.7 g/dL (12.0-16.0); LYMPHOCYTES % 10.4 % (20.0-50.0); MEAN CORPUSCULAR HEMOGLOBIN 25.9 pg (28.0-32.0); MEAN CORPUSCULAR VOLUME 79.9 fL (81.0-99.0); MEAN PLATELET VOLUME 8.2 fl (7.4-10.4); MONOCYTES % 9.7 % (2.0-8.0); NEUTROPHILS % 79.8 % (40.0-76.0); PLATELET 169 x1000/uL (130-400); RED BLOOD CELL COUNT 4.52 mill/uL (4.2-5.4); RED CELL DISTRIBUTION WIDTH 15.6 % (11.6-14.6)
[2020-07-19 07:03] LABS: CHLORIDE 107 mEq/L (98-107)
[2020-07-19] MEDS: PANTOPRAZOLE 40MG DR TABLET PO SCH (07:12)
[2020-07-19] MEDS: BLOOD SUGAR DIAGNOSTIC STRIP TEST SCH ×4 (07:24→21:00)
[2020-07-19 08:00] VITALS: BP 146/79
[2020-07-19] MEDS: METFORMIN HCL 500MG TABLET PO SCH ×2 (08:12→18:12)
[2020-07-19] MEDS: LISINOPRIL 20MG TABLET PO SCH (08:12)
[2020-07-19] MEDS: AMLODIPINE 10MG TABLET PO SCH (08:12)
[2020-07-19] MEDS: DOCUSATE SODIUM 100MG CAPSULE PO SCH ×2 (08:13→17:15)
[2020-07-19] MEDS: PIOGLITAZONE 15MG TABLET PO SCH (08:14)
[2020-07-19] MEDS: POLYETHYLENE GLYCOL 3350 (17GM) 1 DOSE PACK PO SCH (08:14)
[2020-07-19] MEDS: MORPHINE SULFATE 4 MG/ML CPJ (NOT FOR IM USE) IV PRN ×3 (08:15→23:48)
[2020-07-19] MEDS: INSULIN LISPRO (HIGH DOSE) 100 UNITS/ML SUBCUT SCH ×4 (08:27→21:00)
[2020-07-19] MEDS: SODIUM CHLORIDE 0.9% 1,000 ML IV SCH ×2 (08:31→18:14)
[2020-07-19] MEDS ORDERED: INSULIN GLARGINE UD 100 UNITS/ML SYR SUBCUT SCH (10:00)
[2020-07-19] MEDS: OXYCODONE HCL/ACETAMINOPHEN 5/325MG TABLET PO PRN ×2 (10:35→18:11)
[2020-07-19 12:00] VITALS: BP 133/77
[2020-07-19 16:00] VITALS: BP 122/73
[2020-07-19 20:00] VITALS: BP 133/84
[2020-07-19] MEDS: ATORVASTATIN CALCIUM 20MG TABLET PO SCH (22:23)
[2020-07-19] MEDS: ZOLPIDEM TARTRATE 5MG TABLET PO PRN (22:23)
[2020-07-20] VITALS: BP 128/67
[2020-07-20] MEDS: OXYCODONE HCL/ACETAMINOPHEN 5/325MG TABLET PO PRN ×2 (02:50→14:50)
[2020-07-20 04:00] VITALS: BP 158/90
[2020-07-20 06:52] LABS: HEMOGLOBIN. 11.6 g/dL (12.0-16.0); MEAN CORPUSCULAR HEMOGLOBIN 25.8 pg (28.0-32.0); MEAN CORPUSCULAR VOLUME 80.1 fL (81.0-99.0); MEAN PLATELET VOLUME 8.3 fl (7.4-10.4); PLATELET 169 x1000/uL (130-400); RED BLOOD CELL COUNT 4.49 mill/uL (4.2-5.4); RED CELL DISTRIBUTION WIDTH 15.3 % (11.6-14.6)
[2020-07-20] MEDS: SODIUM CHLORIDE 0.9% 1,000 ML IV SCH ×2 (06:53→13:25)
[2020-07-20] MEDS: BLOOD SUGAR DIAGNOSTIC STRIP TEST SCH ×4 (07:20→21:37)
[2020-07-20 08:00] VITALS: BP 136/83
[2020-07-20] MEDS: METFORMIN HCL 500MG TABLET PO SCH ×2 (08:31→17:10)
[2020-07-20] MEDS: POLYETHYLENE GLYCOL 3350 (17GM) 1 DOSE PACK PO SCH (08:31)
[2020-07-20] MEDS: DOCUSATE SODIUM 100MG CAPSULE PO SCH ×2 (08:31→17:10)
[2020-07-20] MEDS: FAMOTIDINE 20MG TABLET PO SCH (08:31)
[2020-07-20] MEDS: AMLODIPINE 10MG TABLET PO SCH (08:32)
[2020-07-20] MEDS: LISINOPRIL 20MG TABLET PO SCH (08:32)
[2020-07-20] MEDS: PIOGLITAZONE 15MG TABLET PO SCH (08:32)
[2020-07-20] MEDS: INSULIN LISPRO (HIGH DOSE) 100 UNITS/ML SUBCUT SCH ×4 (08:45→21:54)
[2020-07-20 08:46] LABS: CHLORIDE 103 mEq/L (98-107)
[2020-07-20] MEDS: INSULIN GLARGINE UD 100 UNITS/ML SYR SUBCUT SCH (11:04)
[2020-07-20] MEDS ORDERED: POTASSIUM CHLORIDE 20MEQ TABLET SR PO NR (11:45)
[2020-07-20 12:00] VITALS: BP 149/86
[2020-07-20] MEDS: MORPHINE SULFATE 4 MG/ML CPJ (NOT FOR IM USE) IV PRN ×3 (12:22→21:38)
[2020-07-20 13:54] LABS: PLATELET ESTIMATE NORMAL
[2020-07-20 16:00] VITALS: BP 123/75
[2020-07-20 20:00] VITALS: BP 125/67
[2020-07-20] MEDS: ATORVASTATIN CALCIUM 20MG TABLET PO SCH (21:37)
[2020-07-20] MEDS: ZOLPIDEM TARTRATE 5MG TABLET PO PRN (23:05)
[2020-07-21] MEDS: SODIUM CHLORIDE 0.9% 1,000 ML IV SCH ×2 (00:20→10:00)
[2020-07-21 04:00] VITALS: BP 129/62
[2020-07-21] MEDS: MORPHINE SULFATE 4 MG/ML CPJ (NOT FOR IM USE) IV PRN ×5 (04:08→21:52)
[2020-07-21] MEDS: BLOOD SUGAR DIAGNOSTIC STRIP TEST SCH ×4 (06:52→21:53)
[2020-07-21] MEDS: INSULIN LISPRO (HIGH DOSE) 100 UNITS/ML SUBCUT SCH ×4 (07:20→22:48)
[2020-07-21 08:00] VITALS: BP 153/93
[2020-07-21] MEDS: METFORMIN HCL 500MG TABLET PO SCH ×2 (08:49→17:51)
[2020-07-21] MEDS: FAMOTIDINE 20MG TABLET PO SCH (08:50)
[2020-07-21] MEDS: DOCUSATE SODIUM 100MG CAPSULE PO SCH ×2 (08:50→17:51)
[2020-07-21] MEDS: LISINOPRIL 20MG TABLET PO SCH (08:50)
[2020-07-21] MEDS: AMLODIPINE 10MG TABLET PO SCH (08:50)
[2020-07-21] MEDS: PIOGLITAZONE 15MG TABLET PO SCH (08:51)
[2020-07-21] MEDS: POLYETHYLENE GLYCOL 3350 (17GM) 1 DOSE PACK PO SCH (08:52)
[2020-07-21] MEDS: LORAZEPAM 2MG/ML CPJ IV PRN (11:26)
[2020-07-21 12:00] VITALS: BP 148/84
[2020-07-21] MEDS: INSULIN GLARGINE UD 100 UNITS/ML SYR SUBCUT SCH (12:08)
[2020-07-21] MEDS ORDERED: NYSTATIN POWDER 15GM TOP SCH (13:00)
[2020-07-21 16:00] VITALS: BP 135/85
[2020-07-21] MEDS: NYSTATIN 100,000 UNITS/GM CREAM 15GM TOP SCH (17:52)
[2020-07-21 20:00] VITALS: BP 159/89
[2020-07-21] MEDS: ATORVASTATIN CALCIUM 20MG TABLET PO SCH (21:53)
[2020-07-21 23:03] LABS: CLARITY URINE CLEAR (CLEAR); COLOR URINE YELLOW (YELLOW); KETONES URINE NEGATIVE (NEGATIVE); LEUKOCYTE ESTERASE URINE TRACE (NEGATIVE); NITRITE URINE NEGATIVE (NEGATIVE); OCCULT BLOOD URINE NEGATIVE (NEGATIVE); PROTEIN URINE NEGATIVE (NEGATIVE); SPECIFIC GRAVITY URINE 1.007 (1.005-1.030)
[2020-07-22] VITALS (7 sets, daily range): BP systolic 132–157; BP diastolic 80–97
[2020-07-22] MEDS: ZOLPIDEM TARTRATE 5MG TABLET PO PRN ×2 (00:28→20:31)
[2020-07-22] MEDS: MORPHINE SULFATE 4 MG/ML CPJ (NOT FOR IM USE) IV PRN ×5 (00:40→20:31)
[2020-07-22] MEDS: SODIUM CHLORIDE 0.9% 1,000 ML IV SCH ×2 (05:21→17:15)
[2020-07-22 06:18] LABS: CHLORIDE 100 mEq/L (98-107)
[2020-07-22] MEDS: BLOOD SUGAR DIAGNOSTIC STRIP TEST SCH ×4 (06:35→20:31)
[2020-07-22] MEDS: INSULIN LISPRO (HIGH DOSE) 100 UNITS/ML SUBCUT SCH ×4 (06:36→21:19)
[2020-07-22 06:40] LABS: BASOPHILS % 0.2 % (0.0-2.0); EOSINOPHILS % 1.8 % (0.0-5.0); HEMATOCRIT. 38.1 % (36.0-48.0); HEMOGLOBIN. 12.3 g/dL (12.0-16.0); LYMPHOCYTES % 15.3 % (20.0-50.0); MEAN CORPUSCULAR HEMOGLOBIN 25.5 pg (28.0-32.0); MEAN PLATELET VOLUME 8.3 fl (7.4-10.4); MONOCYTES % 13.5 % (2.0-8.0); NEUTROPHILS % 69.2 % (40.0-76.0); PLATELET 181 x1000/uL (130-400); RED BLOOD CELL COUNT 4.82 mill/uL (4.2-5.4); RED CELL DISTRIBUTION WIDTH 15.1 % (11.6-14.6)
[2020-07-22] MEDS ORDERED: POTASSIUM CHLORIDE 20MEQ/PACKET PO NR (08:45)
[2020-07-22] MEDS: NYSTATIN 100,000 UNITS/GM CREAM 15GM TOP SCH ×3 (08:51→17:17)
[2020-07-22] MEDS: POLYETHYLENE GLYCOL 3350 (17GM) 1 DOSE PACK PO SCH ×2 (08:51→09:00)
[2020-07-22] MEDS: METFORMIN HCL 500MG TABLET PO SCH ×2 (08:51→17:46)
[2020-07-22] MEDS: AMLODIPINE 10MG TABLET PO SCH (08:52)
[2020-07-22] MEDS: PIOGLITAZONE 15MG TABLET PO SCH (08:52)
[2020-07-22] MEDS: DOCUSATE SODIUM 100MG CAPSULE PO SCH ×2 (08:52→17:16)
[2020-07-22] MEDS: FAMOTIDINE 20MG TABLET PO SCH (08:52)
[2020-07-22] MEDS: LISINOPRIL 20MG TABLET PO SCH (08:53)
[2020-07-22] MEDS: INSULIN GLARGINE UD 100 UNITS/ML SYR SUBCUT SCH (10:16)
[2020-07-22] MEDS ORDERED: POTASSIUM CHLORIDE INJ 40 MEQ in DEXT 5% WATER 250 ML IV NR (13:00)
[2020-07-22] MEDS: ATORVASTATIN CALCIUM 20MG TABLET PO SCH (20:31)
[2020-07-22] MEDS: LORAZEPAM 2MG/ML CPJ IV PRN (21:19)
[2020-07-23 04:00] VITALS: BP 128/81
[2020-07-23] MEDS: SODIUM CHLORIDE 0.9% 1,000 ML IV SCH ×3 (05:39→21:26)
[2020-07-23] MEDS: MORPHINE SULFATE 4 MG/ML CPJ (NOT FOR IM USE) IV PRN (05:46)
[2020-07-23 06:12] LABS: HEMATOCRIT. 37.1 % (36.0-48.0); MEAN CORPUSCULAR HEMOGLOBIN 25.9 pg (28.0-32.0); MEAN CORPUSCULAR VOLUME 80.2 fL (81.0-99.0); PLATELET 161 x1000/uL (130-400); RED BLOOD CELL COUNT 4.63 mill/uL (4.2-5.4); RED CELL DISTRIBUTION WIDTH 15.1 % (11.6-14.6)
[2020-07-23] MEDS: BLOOD SUGAR DIAGNOSTIC STRIP TEST SCH ×4 (06:33→20:31)
[2020-07-23 07:32] LABS: CHLORIDE 103 mEq/L (98-107)
[2020-07-23 08:00] VITALS: BP 132/92
[2020-07-23] MEDS: DOCUSATE SODIUM 100MG CAPSULE PO SCH ×2 (09:32→17:09)
[2020-07-23] MEDS: PIOGLITAZONE 15MG TABLET PO SCH (09:32)
[2020-07-23] MEDS: METFORMIN HCL 500MG TABLET PO SCH ×2 (09:33→17:09)
[2020-07-23] MEDS: LISINOPRIL 20MG TABLET PO SCH (09:33)
[2020-07-23] MEDS: AMLODIPINE 10MG TABLET PO SCH (09:33)
[2020-07-23] MEDS: NYSTATIN 100,000 UNITS/GM CREAM 15GM TOP SCH ×3 (09:34→17:46)
[2020-07-23] MEDS: FAMOTIDINE 20MG TABLET PO SCH (09:34)
[2020-07-23] MEDS: POLYETHYLENE GLYCOL 3350 (17GM) 1 DOSE PACK PO SCH (09:34)
[2020-07-23] MEDS: INSULIN LISPRO (HIGH DOSE) 100 UNITS/ML SUBCUT SCH ×3 (09:54→20:31)
[2020-07-23] MEDS: INSULIN GLARGINE UD 100 UNITS/ML SYR SUBCUT SCH (10:00)
[2020-07-23 12:00] VITALS: BP 126/71
[2020-07-23] MEDS: TRAMADOL 50MG TABLET PO PRN ×3 (12:20→23:47)
[2020-07-23 15:28] LABS: ATYPICAL LYMPHOCYTES 1
[2020-07-23 15:29] LABS: PLATELET ESTIMATE NORMAL
[2020-07-23 16:00] VITALS: BP 128/74
[2020-07-23] MEDS: POLYETHYLENE GLYCOL 3350 (17GM) 1 DOSE PACK PO PRN (17:26)
[2020-07-23] MEDS ORDERED: CYCLOBENZAPRINE 10MG TABLET PO PRN (19:45)
[2020-07-23 20:00] VITALS: BP 160/82
[2020-07-23] MEDS: CLONIDINE 0.1MG TABLET PO PRN (20:29)
[2020-07-23] MEDS: ATORVASTATIN CALCIUM 20MG TABLET PO SCH (20:29)
[2020-07-23] MEDS: ZOLPIDEM TARTRATE 5MG TABLET PO PRN (20:29)
[2020-07-23] MEDS: ACETAMINOPHEN 325MG TABLET PO PRN (22:37)
[2020-07-24] VITALS (7 sets, daily range): BP systolic 108–143; BP diastolic 62–90
[2020-07-24] MEDS ORDERED: MORPHINE SULFATE 2 MG/ML CPJ (NOT FOR IM USE) IV PRN (02:00)
[2020-07-24] MEDS: BLOOD SUGAR DIAGNOSTIC STRIP TEST SCH ×3 (06:20→17:43)
[2020-07-24 06:35] LABS: CHLORIDE 105 mEq/L (98-107)
[2020-07-24 07:14] LABS: HEMATOCRIT. 32.9 % (36.0-48.0); HEMOGLOBIN. 10.6 g/dL (12.0-16.0); MEAN CORPUSCULAR VOLUME 80.5 fL (81.0-99.0); PLATELET 164 x1000/uL (130-400); RED BLOOD CELL COUNT 4.09 mill/uL (4.2-5.4); RED CELL DISTRIBUTION WIDTH 14.8 % (11.6-14.6)
[2020-07-24] MEDS: TRAMADOL 50MG TABLET PO PRN ×2 (10:03→18:38)
[2020-07-24] MEDS: POLYETHYLENE GLYCOL 3350 (17GM) 1 DOSE PACK PO SCH (10:05)
[2020-07-24] MEDS: METFORMIN HCL 500MG TABLET PO SCH ×2 (10:05→17:43)
[2020-07-24] MEDS: DOCUSATE SODIUM 100MG CAPSULE PO SCH ×2 (10:06→17:43)
[2020-07-24] MEDS: AMLODIPINE 10MG TABLET PO SCH (10:07)
[2020-07-24] MEDS: LISINOPRIL 20MG TABLET PO SCH (10:08)
[2020-07-24] MEDS: FAMOTIDINE 20MG TABLET PO SCH (10:08)
[2020-07-24] MEDS: PIOGLITAZONE 15MG TABLET PO SCH (10:08)
[2020-07-24] MEDS: INSULIN GLARGINE UD 100 UNITS/ML SYR SUBCUT SCH (10:14)
[2020-07-24] MEDS: INSULIN LISPRO (HIGH DOSE) 100 UNITS/ML SUBCUT SCH ×3 (10:14→17:20)
[2020-07-24] MEDS: NYSTATIN 100,000 UNITS/GM CREAM 15GM TOP SCH ×3 (10:17→17:43)
[2020-07-24] MEDS: SODIUM CHLORIDE 0.9% 1,000 ML IV SCH (10:17)
[2020-07-24 13:46] LABS: PLATELET ESTIMATE NORMAL
[2020-07-24] MEDS ORDERED: POLYETHYLENE GLYCOL 3350 (17GM) 1 DOSE PACK PO PRN (21:00)
== END 2020-07-24 19:00 | DRG 471 ==
LOC: ER 13:35 → MICUSO 16:53 → 5WST 07-13 07:58 → MICUNO 07-17 15:37 → 6EST 07-18 18:09 → 6WST 07-22 09:11
PROVIDERS: ADMIT Internal Medicine; ATTEND Internal Medicine
PROC: 0RG20A0 Fusion of 2 or more Cervical Vertebral Joints with Interbody Fusion Device, Anterior Approach, Anterior Column, Open Approach (ICD-10-PCS; principal; 2020-07-17)
PROC: 0RG10K0 Fusion of Cervical Vertebral Joint with Nonautologous Tissue Substitute, Anterior Approach, Anterior Column, Open Approach (ICD-10-PCS; 2020-07-17)
PROC: 01N10ZZ Release Cervical Nerve, Open Approach (ICD-10-PCS; 2020-07-17)
PROC: 00NW0ZZ Release Cervical Spinal Cord, Open Approach (ICD-10-PCS; 2020-07-17)
PROC: 0RB30ZZ Excision of Cervical Vertebral Disc, Open Approach (ICD-10-PCS; 2020-07-17)
DX: M48.02 Spinal stenosis, cervical region (principal); E11.00 Type 2 diabetes mellitus with hyperosmolarity without nonketotic hyperglycemic-hyperosmolar coma (NKHHC); G82.50 Quadriplegia, unspecified; G93.41 Metabolic encephalopathy; N39.0 Urinary tract infection, site not specified; M47.12 Other spondylosis with myelopathy, cervical region; Z20.822 Contact with and (suspected) exposure to COVID-19; E11.65 Type 2 diabetes mellitus with hyperglycemia; K21.9 Gastro-esophageal reflux disease without esophagitis; M54.12 Radiculopathy, cervical region; R13.10 Dysphagia, unspecified; E78.5 Hyperlipidemia, unspecified; Z96.652 Presence of left artificial knee joint; C50.919 Malignant neoplasm of unspecified site of unspecified female breast; R26.9 Unspecified abnormalities of gait and mobility; E11.42 Type 2 diabetes mellitus with diabetic polyneuropathy; I10 Essential (primary) hypertension; I25.2 Old myocardial infarction; Z91.14 Patient's other noncompliance with medication regimen; Z92.21 Personal history of antineoplastic chemotherapy; Z79.82 Long term (current) use of aspirin; Z79.899 Other long term (current) drug therapy; R51.9 Headache, unspecified
CPT/HCPCS: 36415; 70551; 71045; 72040; 72141; 76000; 80048; 80053; 80061; 81003; 82010; 82962; 83036; 84443; 85025; 86850; 86900; 87426; 88304; 88311; 90686; 92523; 92610; 93005; 93306; 97116; 97162; 97164; 97166; 97530; 99285; A6261; C1713; C1893; J0330; J0690; J0696; J1100; J1580; J1644; J1815; J1885; J2060; J2250; J2270; J2405; J2704; J2710; J2765; J3010; J3480; J3490; J7030; J7050; J7060; L0172; C1762

== ENCOUNTER 2021-03-22 12:27 | Emergency (ER) | payer OTHER, MEDICAID ==
[~2021-03-22] VITALS: Ht 154.9 cm; Wt 61.0 kg
[2021-03-22 13:10] LABS: BASOPHILS % 1.2 % (0.0-2.0); EOSINOPHILS % 3.2 % (0.0-5.0); HEMATOCRIT. 39.8 % (36.0-48.0); HEMOGLOBIN. 12.9 g/dL (12.0-16.0); LYMPHOCYTES % 25.7 % (20.0-50.0); MEAN CORPUSCULAR HEMOGLOBIN 26.1 pg (28.0-32.0); MEAN CORPUSCULAR VOLUME 80.5 fL (81.0-99.0); MEAN PLATELET VOLUME 7.9 fl (7.4-10.4); MONOCYTES % 10.9 % (2.0-8.0); PLATELET 240 x1000/uL (130-400); RED BLOOD CELL COUNT 4.94 mill/uL (4.2-5.4); RED CELL DISTRIBUTION WIDTH 14.5 % (11.6-14.6)
[2021-03-22 13:12] LABS: CHLORIDE 100 mEq/L (98-107)
[2021-03-22 13:20] LABS: C REACTIVE PROTEIN QUANT 0.6 mg/L (0.0-3.0)
[2021-03-22 16:42] LABS: CLARITY URINE CLOUDY (CLEAR); COLOR URINE YELLOW (YELLOW); KETONES URINE 1+ (NEGATIVE); LEUKOCYTE ESTERASE URINE 2+ (NEGATIVE); NITRITE URINE NEGATIVE (NEGATIVE); OCCULT BLOOD URINE NEGATIVE (NEGATIVE); PH URINE 5.5 (4.5-8.0); PROTEIN URINE TRACE (NEGATIVE); SPECIFIC GRAVITY URINE 1.021 (1.005-1.030); UROBILINOGEN URINE 0.2 E.U./dL (0.2-1.0)
[2021-03-22] MEDS ORDERED: ACETAMINOPHEN 325MG TABLET PO ONE (17:00)
[2021-03-22 19:19] VITALS: BP 135/65
== END 2021-03-22 19:19 | disposition home or self-care (01) ==
LOC: ER 12:27
DX: R51.9 Headache, unspecified (principal); B35.1 Tinea unguium; E11.9 Type 2 diabetes mellitus without complications; I10 Essential (primary) hypertension; Z20.822 Contact with and (suspected) exposure to COVID-19; Z98.1 Arthrodesis status; Z85.3 Personal history of malignant neoplasm of breast; Z90.10 Acquired absence of unspecified breast and nipple; Z79.84 Long term (current) use of oral hypoglycemic drugs; Z79.82 Long term (current) use of aspirin
CPT/HCPCS: 36415; 70450; 80053; 81003; 81025; 85025; 85651; 86140; 99284; C9803; U0003; U0005